=== PATIENT | female | born 1950 | race Caucasian/White ===

== ENCOUNTER 2018-04-22 05:08 | Inpatient (IN) ==
[2018-04-22] MEDS ORDERED: Dexamethasone Inj 20 MG/5 ML Vial IV.PUSH ONE (05:32)
[2018-04-22] MEDS ORDERED: Chlorhexidine 4% Topical 120 APPLIC/120 ML Bottle TOPICAL SCH (05:45)
[2018-04-22] MEDS ORDERED: Chlorhexidine Gluconate 2% 1 Pack (2 Cloths) TOPICAL ONE (05:46)
[2018-04-22] MEDS ORDERED: Metoprolol Tartrate 25 MG Tablet PO ONE (05:46)
[2018-04-22] MEDS ORDERED: Vancomycin Inj 1,000 MG in Sodium Chlor 0.9% Inj 250 ML IV.SIG SCH (06:00)
[2018-04-22] MEDS ORDERED: Sodium Chlor 0.9% Inj 500 ML IV.SIG SCH (06:00)
[2018-04-22] MEDS ORDERED: ceFAZolin 2 GM Premix Inj 2 GM/50 ML PIGGYBACK IV.SIG SCH (06:00)
[2018-04-22] MEDS ORDERED: HYDROmorphone PF Inj 1 MG/ML Ampul IV.PUSH PRN (06:51)
[2018-04-22] MEDS ORDERED: Post-op Orders (for Pharmacy) OTHER STA (06:51)
[2018-04-22] MEDS ORDERED: Zolpidem Tartrate 5 MG Tablet PO PRN (06:51)
[2018-04-22] MEDS ORDERED: Bupivacaine Liposomal PF 1.3% Inj 20 ML Vial ONE (07:36)
[2018-04-22] MEDS ORDERED: Lidocaine PF 1% Inj 5 ML Syringe OTHER ONE (08:05)
[2018-04-22] MEDS ORDERED: Sodium Chlor 0.9% Inj 73.07 ML, Ropivacaine 0.5% PF Inj 24.63 ML, Ketorolac Inj 30 MG, ... P-ARTICULR SCH ×5 (08:30)
[2018-04-22] MEDS ORDERED: TRANEXAMIC ACID IV.SIG SCH (08:30)
[2018-04-22] MEDS ORDERED: SODIUM CHLOR 0.9% IV.SIG SCH (08:30)
[2018-04-22] MEDS ORDERED: Sodium Chlor 0.9% Inj 100 ML, Tranexamic Acid Inj 3,000 MG P-ARTICULR SCH ×2 (08:30)
[2018-04-22] MEDS ORDERED: *Meperidine Inj 25 MG/ML Vial PERIprocedural Use ONLY ONE (10:31)
[2018-04-22] MEDS ORDERED: fentaNYL Citrate Inj 100 MCG/2 ML Ampul ONE (10:42)
--- NOTE | 2018-04-22 11:05 | MP ---
cc: Dell Benson MD DATE OF OPERATION: 04/22/2018 DATE: 04/22/2015 PREOPERATIVE DIAGNOSIS: Right knee osteoarthritis. POSTOPERATIVE DIAGNOSIS: Right knee osteoarthritis. PROCEDURE PERFORMED: Right total knee arthroplasty. SURGEON: Dell Benson MD ICT SUPPORT ENGINEER: NAUN Pina. ANESTHESIA: General with femoral nerve adductor canal block. ESTIMATED BLOOD LOSS: 100 mL TOURNIQUET TIME: 33 minutes at 250 mmHg. COMPLICATIONS: None. IMPLANTS USED: DePuy Attune size 5 posterior stabilized femoral component, size 4 rotating platform tibial baseplate, size 7 mm polyethylene tibial insert, size 35 patella. JUSTIFICATIONS: This patient is a 67-year-old female with history of severe osteoarthritis of the right knee joint. She has severe disabling pain with standing, walking, ambulation, weightbearing activities and severe pain at rest. She has failed greater than 3 months of nonoperative conservative treatment to include medication therapy, injections, ambulatory assistive aides, home exercise program, activity modification, weight loss attempts. X-ray of the right knee revealed severe osteoarthritis with [id number] joint space narrowing, subchondral sclerosis, subchondral cyst, osteophyte formation with varus deformity and subluxation. The patient was counseled on risks, benefits, and alternatives to a total knee arthroplasty. The risks were discussed, which include, but are not limited to anesthesia, bleeding, infection, damage to nerves and blood vessels, pain, stiffness, fracture, failure of hardware, blood clots, pulmonary embolism and even . The patient's pain is very severe. He favored the benefits over the risks and agreed to proceed with surgery. PROCEDURE IN DETAIL: Written consent was obtained. The patient was identified by name, taken to the operating room and placed supine on the table. General anesthesia was administered, as well as 2 grams IV Ancef and 1 gram IV vancomycin. A well-padded tourniquet was placed on the right thigh. The right lower extremity prepped and draped using isopropyl alcohol, Hibiclens solution and ChloraPrep solution. After a timeout was performed, Esmarch bandage was used to exsanguinate the right lower extremity; tourniquet inflated to 250 mmHg. A longitudinal incision was made over the anterior aspect of the right knee. A medial parapatellar arthrotomy was performed. The patella everted. The patellar resection guide was used to resect 9 mm of the patella. The size 35 mm guide was placed. Three drills were placed and the 35 mm trial fit well. Attention was turned to the femur where an intramedullary guide was placed and distal femoral guide was set to remove 10 mm of distal femur, 5 degrees off the anatomic valgus axis line and the oscillating saw used to perform distal femoral cut. Attention was turned to the tibia. An extramedullary tibial guide was set to remove 6 mm off the lowest portion of the medial tibial plateau. A guide pin was placed and tibial cut was performed. A 5 mm spacer block showed full extension. Attention was turned back to the femur. AP sizing block measured a size 5. The anterior reference 3-degree external rotation guide was used and a size [address] The anterior, posterior chamfer cuts were performed. A size 5 PCL box was pinned in place and the PCL was approximated with an oscillating saw. The medial and lateral meniscus remnants were removed as well as bone and soft tissue debris from the posterior portion of the knee. A size 4 tibial baseplate was pinned in place and the tibia was drilled and punched. Trial components were evaluated and final components cemented in place. With the tourniquet and current components, the leg could achieve full extension to 0 degrees and flexion to 140. No evidence of tibial liftoff. Varus valgus balance are appropriate and symmetric and the patella was noted to track centrally. With the tourniquet deflated, Bovie cautery was used for hemostasis. The knee was thoroughly irrigated with sterile saline, pulse lavage and antibiotic impregnated solution. The arthrotomy incision was closed with #1-Vicryl suture, subcutaneous layer with 2-0 Vicryl suture and the skin closed with Dermabond. Sterile dressing was applied. He tolerated the procedure well with no intraoperative complications noted. Samir Abernathy, Physician Maintenance And Custodian Supervisor-Certified was present for the entire procedure to include patient positioning and the procedure itself. The medical necessity of the physician pediatric medical assistant was indicated in this case due to the complexity of the procedure. He assisted with appropriate manipulation of the leg and also retraction muscles, tendon, bone and neurovascular structures. He assisted in preparation of bone and also implantation of the prosthetic replacement. MD ROE Lieberman/brenton , 10:29 AM , 10:39 AM
[2018-04-22] MEDS ORDERED: *morphine SULFATE 4 MG/ML PERIprocedure ONLY ONE ×2 (11:13→11:29)
--- NOTE | 2018-04-22 11:42 | XR ---
EXAM DATE: 04/22/2018 6:49 AM EDT AGE/SEX: 68 years / Female INDICATIONS: Post op right knee. CLINICAL DATA: This is the patient's initial encounter. Patient reports that signs and symptoms have been present for 1 day and indicates a pain score of Nonresponsive. MEDICAL/SURGICAL HISTORY: None. None. COMPARISON: No prior exams available for comparison. FINDINGS: A total knee arthroplasty is identified. The tibial and femoral components appear well seated. Subcut aneous air is present surrounding the knee. Bone density is normal. No fractures are seen. CONCLUSION: Right total knee arthroplasty. Electronically signed by: Barrett Torres MD 04/22/2018 11:41 AM EDT
[2018-04-22] MEDS: ceFAZolin 2 GM Premix Inj 2 GM/50 ML PIGGYBACK IV.SIG SCH ×2 (13:08→18:09)
[2018-04-22] MEDS: Gabapentin 300 MG Capsule PO SCH ×3 (13:32→18:09)
[2018-04-22] MEDS: Multivitamin/Minerals Therapeutic Tablet PO SCH ×2 (13:33→21:47)
[2018-04-22] MEDS: Pantoprazole Sodium 20 MG DR Tablet PO SCH (15:15)
[2018-04-22] MEDS: Senna/Docusate Sodium 8.6/50 MG Tablet PO SCH ×2 (15:15→21:47)
--- NOTE | 2018-04-22 15:20 | P.HPIM ---
History of Present Illness Service: [facility] Primary Care Physician: Garett Huston MD Chief Complaint: R knee pain History of Present Illness: This is a 68 y/o F with PMHx GERD, OA, and AR admitted for surgical management of Osteoarthritis of the R knee. Patient is s/p right total knee arthroplasty performed on 04/[address] Benson. We have been consulted for medical management. Patient reports that she is doing well postop, reports that pain is well controlled with meds. Patient has no current concerns, denies chest pain, shortness of breath, recent illness, fever, and chills. - Diagnosis (1) Osteoarthritis (2) GERD (gastroesophageal reflux disease) (3) Neuropathy (4) Allergic rhinitis Inpatient Certification: I certify that the inpatient services were ordered in accordance with Medicare regulations governing the order. This includes certification that hospital inpatient services are reasonable and necessary and in the case of services not specified as inpatient-only under 42 CFR 419.22(n), that they are appropriately provided as inpatient services in accordance to with the 2-midnight benchmark under 43 CFR 412.3(e) Estimated Total Length of Stay (Days): 2 Plans for Post Hospital Care: Home Review of Systems All other systems reviewed negative except as stated in HPI PMFSH - History History Provided By: Patient - Medical History Medical History: Medical History (Last Reviewed 04/22/18 @ 15:23 by Vielka Earl MD) Arthritis Cataracts, bilateral GERD (gastroesophageal reflux disease) Joint pain Neck pain Peripheral neuropathy Sciatica Skin cancer Urinary incontinence Wears glasses Wears partial dentures - Surgical History Surgical History: Surgical History (Last Reviewed 04/22/18 @ 15:23 by Vielka Earl MD) History of History of arthroplasty of left knee History of cholecystectomy History of foot surgery History of oophorectomy History of tonsillectomy - Family History Family History: Family History (Last Updated 04/22/18 @ 15:23 by Vielka Earl MD) Other Family history normal - Social History I have reviewed the patient's Social History: Yes - Tobacco History Second Hand Smoke Exposure: No Smoking Status: Never smoker - Alcohol History How Often Do You Have a Drink Containing Alcohol: Never - Substance Use History Substance History: No History of Abuse - Travel History Recent Travel in the [place] Within the Last 8 Weeks: No Recent Travel Out of the Country Within the Last 8 Weeks: No - Immunization History Tetanus Immunization: Unsure Hx Influenza Vaccine This Season: No Medications and Allergies Active Medications: Active Medications Hydrocodone Bitart/Acetaminophen ([place] 7.5/325) 1 tab PO Q4H PRN PRN Reason: PAIN LESS THAN 5 ON SCALE Hydrocodone Bitart/Acetaminophen ([place] 7.5/325) 2 tab PO Q6H PRN PRN Reason: PAIN SCALE 5 TO 10 Al Hydroxide/Mg Hydroxide (Milk Of Magnesia Liq) 30 ml PO BID PRN PRN Reason: Mild Constipation Aspirin (Aspirin Chew) 81 mg PO BID [facility] Last Admin: 04/22/18 11:41 Dose: 81 mg Chlorhexidine Gluconate (Hibiclens 4% Topical) 1 applicatio TOPICAL ONCE [facility] Stop: 04/26/18 05:44 Diphenhydramine HCl (Benadryl) 25 mg PO Q6H PRN PRN Reason: ITCHING Gabapentin (Neurontin) 300 mg PO TID [facility] Last Admin: 04/22/18 15:15 Dose: Not Given Hydromorphone HCl (Dilaudid Pf Inj) 1 mg IV.PUSH Q3H PRN PRN Reason: BREAKTHROUGH PAIN Cefazolin Sodium/Dextrose (Ancef 2 Gm Premix Inj) 2 gm in 50 mls @ 100 mls/hr 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 [facility] Stop: 04/26/18 05:59 Last Admin: 04/22/18 07:10 Dose: 100 mls/hr Vancomycin HCl 1,000 mg/ (Sodium Chloride) 250 mls @ 250 mls/hr 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 [facility] Stop: 04/25/18 05:33 Last Admin: 04/22/18 07:33 Dose: 250 mls/hr Lactated Ringer's (Lr 1000 Ml Inj) 1,000 mls @ 30 mls/hr IV.SIG .Q24H [facility] Stop: 04/23/18 05:59 Last Admin: 04/22/18 06:40 Dose: 30 mls/hr Sodium Chloride (Ns Inj) 500 mls @ 30 mls/hr IV.SIG .Q10H [facility] Last Admin: 04/22/18 07:21 Dose: Not Given Cefazolin Sodium/Dextrose (Ancef 2 Gm Premix Inj) 2 gm in 50 mls @ 100 mls/hr IV.SIG Q6H [facility] Stop: 04/23/18 01:29 Last Infusion: 04/22/18 13:38 Dose: Infused Lactated Ringer's (Lr 1000 Ml Inj) 1,000 mls @ 80 mls/hr IV.CONT .[id number] [facility] Last Infusion: 04/22/18 13:34 Dose: 80 mls/hr Lactulose (Lactulose Liq) 30 ml PO DAILY PRN PRN Reason: SEVERE CONSITIPATION Melatonin (Melatonin) 10 mg PO HS [facility] Miscellaneous Information (Mis Nursing Information) 0 each OTHER UNSCH PRN PRN Reason: SEE LABEL COMMENTS Stop: 04/23/18 10:30 Multivitamins/Minerals (Theragran-M) 1 tab PO BID [facility] Stop: 06/21/18 08:59 Last Admin: 04/22/18 13:33 Dose: Not Given Ondansetron HCl (Zofran Inj) 4 mg IV.PUSH Q6H PRN PRN Reason: NAUSEA OR VOMITING Pantoprazole Sodium (Protonix) 20 mg PO DAILY [facility] Last Admin: 04/22/18 15:15 Dose: Not Given Povidone Iodine (Betadine 7.5% Scrub) 1 applicatio TOPICAL ONCE [facility] Stop: 04/26/18 05:59 Senna/Docusate Sodium (Ashly-Colace) 1 tab PO BID [facility] Last Admin: 04/22/18 15:15 Dose: Not Given Sennosides (Senokot) 17.2 mg PO BID PRN PRN Reason: Moderate Constipation Sodium Chloride (Ns Flush) 2 ml IV.FLUSH BID [facility] Last Admin: 04/22/18 13:32 Dose: Not Given Sodium Chloride (Ns Flush) 2 ml IV.FLUSH UNSCH PRN PRN Reason: FLUSH AFTER USING IV ACCESS Zolpidem Tartrate (Ambien) 5 mg PO HS PRN PRN Reason: INSOMNIA Allergies Allergy/AdvReac Type Severity Reaction Status Date / Time No Known Allergies Allergy Verified 04/22/18 07:11 Home Medications Medication Instructions Recorded Confirmed Type calcium carbonate-vitamin D3 1 tab PO BID 04/10/18 04/22/18 History [Calcium 600 + D(3)] cetirizine [Zyrtec] 10 mg PO DAILY 04/10/18 04/22/18 History cholecalciferol (vitamin D3) 1,000 unit PO BID 04/10/18 04/22/18 History [Vitamin D3] gabapentin 300 mg PO TID 04/10/18 04/22/18 History melatonin 10 mg PO HS 04/10/18 04/22/18 History meloxicam 15 mg PO DAILY 04/10/18 04/22/18 History [id number]-kpr-VE-lycopen-lutein 1 tab PO DAILY 04/10/18 04/22/18 History [Centrum Silver] omeprazole 20 mg PO DAILY 04/10/18 04/22/18 History turmeric root extract 500 mg PO BID 04/10/18 04/22/18 History Exam Vital signs: Vital Signs 04/22/18 07:22 04/22/18 07:26 04/22/18 10:30 Temperature 98.6 F 97.2 F L Pulse Rate 87 73 105 H Respiratory Rate 20 22 Blood Pressure 131/69 153/75 H Pulse Oximetry 95 98 97 04/22/18 10:45 04/22/18 11:00 04/22/18 11:15 Temperature Pulse Rate 88 90 87 Respiratory Rate 16 16 14 Blood Pressure 163/60 H 145/68 H 158/73 H Pulse Oximetry 95 95 97 04/22/18 11:30 04/22/18 12:00 04/22/18 13:00 Temperature 97.4 F L Pulse Rate 92 H 88 87 Respiratory Rate 24 14 Blood Pressure 135/68 121/67 Pulse Oximetry 96 96 97 Intake & Output 04/21/18 04/22/18 04/22/18 18:59 06:59 18:59 Intake Total 1592 / 1592 Output Total 50 / 50 Balance 1542 / 1542 Weight 93.3 kg 93.3 kg Intake: IV 242 / 242 LR 1000 mL Inj 1,000 ML @ 80 192 / 192 mls/hr IV.CONT .[id number] [facility] Rx# :[id number] Ancef 2 GM Premix Inj 2 gm In 50 / 50 50 ml @ 100 mls/hr IV.SIG Q6H [facility] Rx#:[id number] Oral 150 / 150 Anesthesia Amount 1200 / 1200 Output: Urine 0 / 0 Estimated Blood Loss 50 / 50 Other: Date of Last Bowel Movement 04/21/18 Weight On Admission 93.3 kg Narrative: GENERAL: Well-nourished female, in NAD, lying comfortably in bed SKIN: Warm and dry. HEENT: Normocephalic. No scleral icterus. No injection or drainage. PERRLA, MOM. NECK: Supple, trachea midline. No JVD or lymphadenopathy. CARDIOVASCULAR: Regular rate and rhythm without murmurs, gallops, or rubs. RESPIRATORY: CTA x2 GASTROINTESTINAL: Abdomen soft, non-tender, nondistended. MUSCULOSKELETAL: No cyanosis, or edema. R knee dressing in place, C/D/I BACK: Nontender without obvious deformity. No CVA tenderness. NEURO: AAOx3, well-nourished male, in NAD, resting calmly in bed no focal deficits Results - Imaging Impressions Knee X-Ray 04/22/18 06:49 CONCLUSION: Right total knee arthroplasty. Caprini VTE Risk Assessment Caprini VTE Risk Assessment: Moderate/High Risk (score >= 2) Caprini Risk Assessment Model: Point Value = 1 Point Value = 2 Point Value = 3 Point Value = 5 Age 41-60 Minor surgery BMI > 25 kg/m2 Swollen legs Varicose veins or History of unexplained or recurrent spontaneous Oral contraceptives or hormone replacement Sepsis (< 1 month) Serious lung disease, including pneumonia (< 1 month) Abnormal pulmonary function Acute myocardial infarction Congestive heart failure (< 1 month) History of inflammatory bowel disease Medical patient at bed rest Age 61-74 Arthroscopic surgery Major open surgery (> 45 min) Laparoscopic surgery (> 45 min) Malignancy Confined to bed (> 72 hours) Immobilizing plaster cast Central venous access Age >= 75 History of VTE Family history of VTE Factor V Leiden Prothrombin [id number] Lupus anticoagulant Anticardiolipin antibodies Elevated serum homocysteine Heparin-induced thrombocytopenia Other congenital or acquired thrombophilia Stroke (< 1 month) Elective arthroplasty Hip, pelvis, or leg fracture Acute spinal cord injury (< 1 month) Prophylaxis Regimen: Total Risk Factor Score Risk Level Prophylaxis Regimen 0-1 Low Early ambulation 2 Moderate Order ONE of the following: *Sequential Compression Device (SCD) *Heparin 5000 units SQ BID 3-4 Higher Order ONE of the following medications: *Heparin 5000 units SQ TID *Enoxaparin/Lovenox 40 mg SQ daily (WT < 150 kg, CrCl > 30 mL/min) *Enoxaparin/Lovenox 30 mg SQ daily (WT < 150 kg, CrCl > 10-29 mL/min) *Enoxaparin/Lovenox 30 mg SQ BID (WT < 150 kg, CrCl > 30 mL/min) AND/OR *Sequential Compression Device (SCD) 5 or more Highest Order ONE of the following medications: *Heparin 5000 units SQ TID (Preferred with Epidurals) *Enoxaparin/Lovenox 40 mg SQ daily (WT < 150 kg, CrCl > 30 mL/min) *Enoxaparin/Lovenox 30 mg SQ daily (WT < 150 kg, CrCl > 10-29 mL/min) *Enoxaparin/Lovenox 30 mg SQ BID (WT < 150 kg, CrCl > 30 mL/min) AND *Sequential Compression Device (SCD) Assessment and Plan - Assessment (1) Osteoarthritis Code(s): M19.90 - Unspecified osteoarthritis, unspecified site Status: Chronic (2) GERD (gastroesophageal reflux disease) Code(s): K21.9 - Gastro-esophageal reflux disease without esophagitis Status: Chronic (3) Neuropathy Code(s): G62.9 - Polyneuropathy, unspecified Status: Chronic (4) Allergic rhinitis Code(s): J30.9 - Allergic rhinitis, unspecified Status: Chronic - Plan This is a 68 y/o F with PMHx GERD, OA, and AR admitted for surgical management of Osteoarthritis of of the R knee, patient is s/p Right Total Knee Arthroplasty performed by Dr. Benson on 04/22, POD#0, we have been consulted for medical management, HD#1 1. Right Knee Osteoarthritis s/p Right Total Knee Arthroplasty Postop care, managed by Ortho, appreciate assistance with care Dilaudid, [place], and Zofran PRN On Cefazolin and Vanc per Ortho PT to evaluate and assist with discharge planning 2. GERD Cont. home PPI 3. AR Cont. home Zytec 4. Osteoarthritis Holding home Meloxicam due to increased bleeding risk postop 5. Neuropathy Continue home Gabapentin 6. DVT PPX: ASA per Ortho 7. Dispo: Await PT recommendations for discharge planning, and Ortho postoperative recommendations Code Status: full Discussed Condition With: patient, RN H&P: Quality - VTE Deep Vein Thrombosis/Pulmonary Embolism Present on Admission: No
--- NOTE | 2018-04-22 19:25 | P.PN ---
Subjective Interval history: NOt seen Physical Exam Vital signs: Vital Signs 04/22/18 07:22 04/22/18 07:26 04/22/18 10:30 Temperature 98.6 F 97.2 F L Pulse Rate 87 73 105 H Respiratory Rate 20 22 Blood Pressure 131/69 153/75 H Pulse Oximetry 95 98 97 04/22/18 10:45 04/22/18 11:00 04/22/18 11:15 Temperature Pulse Rate 88 90 87 Respiratory Rate 16 16 14 Blood Pressure 163/60 H 145/68 H 158/73 H Pulse Oximetry 95 95 97 04/22/18 11:30 04/22/18 12:00 04/22/18 13:00 Temperature 97.4 F L Pulse Rate 92 H 88 87 Respiratory Rate 24 14 Blood Pressure 135/68 121/67 Pulse Oximetry 96 96 97 04/22/18 16:00 Temperature 97.5 F L Pulse Rate 72 Respiratory Rate 17 Blood Pressure 116/58 L Pulse Oximetry 72 L Intake & Output 04/22/18 04/22/18 04/23/18 06:59 18:59 06:59 Intake Total 2121 / 2121 Output Total 50 / 50 Balance 2071 / 2071 Weight 93.3 kg 93.3 kg Intake: IV 292 / 292 LR 1000 mL Inj 1,000 ML @ 80 192 / 192 mls/hr IV.CONT .[id number] [facility] Rx# :[id number] Ancef 2 GM Premix Inj 2 gm In 100 / 100 50 ml @ 100 mls/hr IV.SIG Q6H [facility] Rx#:[id number] Oral 630 / 630 Anesthesia Amount 1200 / 1200 Output: Urine 0 / 0 Estimated Blood Loss 50 / 50 Other: # Voids 2 Date of Last Bowel Movement 04/21/18 # Bowel Movements 0 Weight On Admission 93.3 kg Narrative: GENERAL: Well-nourished female, in NAD, lying comfortably in bed SKIN: Warm and dry. HEENT: Normocephalic. No scleral icterus. No injection or drainage. PERRLA, MOM. NECK: Supple, trachea midline. No JVD or lymphadenopathy. CARDIOVASCULAR: Regular rate and rhythm without murmurs, gallops, or rubs. RESPIRATORY: CTA x2 GASTROINTESTINAL: Abdomen soft, non-tender, nondistended. MUSCULOSKELETAL: No cyanosis, or edema. R knee dressing in place, C/D/I BACK: Nontender without obvious deformity. No CVA tenderness. NEURO: AAOx3, well-nourished male, in NAD, resting calmly in bed no focal deficits Results - Labs Laboratory Results - last 24 hr 04/22/18 06:56 Blood Type O Positive Blood Type Recheck Required Antibody Screen Negative - Imaging Impressions Knee X-Ray 04/22/18 06:49 CONCLUSION: Right total knee arthroplasty. - Procedures Right TKA Assessment and Plan - Assessment (1) Osteoarthritis Code(s): M19.90 - Unspecified osteoarthritis, unspecified site Status: Chronic (2) GERD (gastroesophageal reflux disease) Code(s): K21.9 - Gastro-esophageal reflux disease without esophagitis Status: Chronic (3) Neuropathy Code(s): G62.9 - Polyneuropathy, unspecified Status: Chronic (4) Allergic rhinitis Code(s): J30.9 - Allergic rhinitis, unspecified Status: Chronic - Plan This is a 68 y/o F with PMHx GERD, OA, and Allergic rhinitis admitted for surgical management of Osteoarthritis of of the R knee, patient is s/p Right Total Knee Arthroplasty performed by Dr. Benson on 04/22, we have been consulted for medical management 1. Right Knee Osteoarthritis s/p Total Knee Arthroplasty Postop care, managed by Ortho, appreciate assistance with care Dilaudid, [place], and Zofran PRN On Cefazolin and Vanc per Ortho PT to evaluate and assist with discharge planning 2. GERD Cont. home PPI 3. Allergic rhinitis Cont. home Zytec 4. Osteoarthritis Holding home Meloxicam due to increased bleeding risk postop 5. Neuropathy Continue home Gabapentin 6. DVT PPX: ASA per Ortho 7. Dispo: Await PT recommendations for discharge planning, and Ortho postoperative recommendations
[2018-04-22] MEDS: Calcium/Vitamin D 250/125 MG Tablet PO SCH (21:47)
[2018-04-22] MEDS: Melatonin 5 MG Tablet PO SCH (21:48)
[2018-04-23] MEDS: ceFAZolin 2 GM Premix Inj 2 GM/50 ML PIGGYBACK IV.SIG SCH (02:34)
[2018-04-23 05:01] LABS: Hematocrit 36.3 % (35.0-46.0); Hemoglobin 12.1 gm/dL (11.6-15.3)
[2018-04-23 05:18] LABS: Calcium 8.6 mg/dL (8.5-10.1); Carbon Dioxide 27.9 meq/L (21.0-32.0)
[2018-04-23 06:46] LABS: Potassium 4.5 meq/L (3.5-5.1)
--- NOTE | 2018-04-23 08:10 | P.PNOP ---
Subjective Interval history: pain controlled. Physical Exam Vital signs: Vital Signs 04/22/18 10:30 04/22/18 10:45 04/22/18 11:00 Temperature 97.2 F L Pulse Rate 105 H 88 90 Respiratory Rate 22 16 16 Blood Pressure 153/75 H 163/60 H 145/68 H Pulse Oximetry 97 95 95 04/22/18 11:15 04/22/18 11:30 04/22/18 12:00 Temperature Pulse Rate 87 92 H 88 Respiratory Rate 14 24 14 Blood Pressure 158/73 H 135/68 121/67 Pulse Oximetry 97 96 96 04/22/18 13:00 04/22/18 16:00 04/22/18 20:00 Temperature 97.4 F L 97.5 F L 97.6 F Pulse Rate 87 72 92 H Respiratory Rate 17 18 Blood Pressure 116/58 L 123/61 Pulse Oximetry 97 72 L 97 04/23/18 00:00 04/23/18 04:00 04/23/18 08:00 Temperature 97.3 F L 97.6 F 97.5 F L Pulse Rate 73 77 80 Respiratory Rate 18 18 16 Blood Pressure 111/52 L 123/60 119/59 L Pulse Oximetry 98 98 93 L Intake & Output 04/22/18 04/23/18 04/23/18 18:59 06:59 18:59 Intake Total 2 / 2122 400 / 400 50 / 50 Output Total 50 / 50 Balance 2071 / 2071 400 / 400 50 / 50 Weight 93.3 kg Intake: IV 292 / 292 50 / 50 LR 1000 mL Inj 1,000 ML @ 80 192 / 192 0 / 0 mls/hr IV.CONT .[id number] [facility] Rx# :[id number] Ancef 2 GM Premix Inj 2 gm In 100 / 100 50 / 50 50 ml @ 100 mls/hr IV.SIG Q6H [facility] Rx#:[id number] Oral 630 / 630 400 / 400 Anesthesia Amount 1200 / 1200 Output: Urine 0 / 0 Estimated Blood Loss 50 / 50 Other: # Voids 2 4 Date of Last Bowel Movement 04/21/18 04/21/18 # Bowel Movements 0 Narrative: in room, ambulating with walker nad dressing c/d/i neg homans nvi Results - Labs CBC & Chem 7: 04/23/18 04:51 10/16/18 04:31 Laboratory Results - last 24 hr 04/23/18 04/23/18 04:31 04:51 Hgb 12.1 Hct 36.3 Sodium 141 Potassium 4.5 Chloride 107 Carbon Dioxide 27.9 Anion Gap 9 BUN 13 Creatinine 1.02 H Estimated GFR 54 L Random Glucose 129 H Calcium 8.6 - Imaging Impressions Knee X-Ray 04/22/18 06:49 CONCLUSION: Right total knee arthroplasty. Assessment and Plan - Ortho Post Op Day # 1 - Assessment and Plan s/p R TKA wbat ok to maintain dressing unless saturated asa 81 d/c planning to snf - [facility] f/up dr. [place] 2 weeks
[2018-04-23] MEDS: Calcium/Vitamin D 250/125 MG Tablet PO SCH ×2 (09:37→21:43)
[2018-04-23] MEDS: Gabapentin 300 MG Capsule PO SCH ×3 (09:38→18:34)
[2018-04-23] MEDS: Senna/Docusate Sodium 8.6/50 MG Tablet PO SCH ×2 (09:38→21:43)
[2018-04-23] MEDS: Pantoprazole Sodium 20 MG DR Tablet PO SCH (09:38)
[2018-04-23] MEDS: Multivitamin/Minerals Therapeutic Tablet PO SCH ×2 (09:38→21:43)
--- NOTE | 2018-04-23 14:26 | P.PN ---
Subjective Interval history: Follow-up, status post right total knee. Patient seen and examined, sitting up in chair. Resting comfortably, pain is stable. Has not had bowel movement yet. No fever, no chest pain, no shortness of breath. Tolerating diet well, no nausea, no vomiting. at bsd. Pt. wants to go to [facility] Physical Exam Vital signs: Vital Signs 04/22/18 16:00 04/22/18 20:00 04/23/18 00:00 Temperature 97.5 F L 97.6 F 97.3 F L Pulse Rate 72 92 H 73 Respiratory Rate 17 18 18 Blood Pressure 116/58 L 123/61 111/52 L Pulse Oximetry 72 L 97 98 04/23/18 04:00 04/23/18 08:00 04/23/18 12:00 Temperature 97.6 F 97.5 F L 98.0 F Pulse Rate 77 80 80 Respiratory Rate 18 16 16 Blood Pressure 123/60 119/59 L 132/60 Pulse Oximetry 98 93 L 93 L Intake & Output 04/22/18 04/23/18 04/23/18 18:59 06:59 18:59 Intake Total 2122 / 2122 400 / 400 50 / 50 Output Total 50 / 50 Balance 2071 / 2 400 / 400 50 / 50 Weight 93.3 kg Intake: IV 292 / 292 50 / 50 LR 1000 mL Inj 1,000 ML @ 80 192 / 192 0 / 0 mls/hr IV.CONT .[id number] TORSTEN Rx# :[id number] Ancef 2 GM Premix Inj 2 gm In 100 / 100 50 / 50 50 ml @ 100 mls/hr IV.SIG Q6H TORSTEN Rx#:[id number] Oral 630 / 630 400 / 400 Anesthesia Amount 1200 / 1200 Output: Urine 0 / 0 Estimated Blood Loss 50 / 50 Other: # Voids 2 4 Date of Last Bowel Movement 04/21/18 04/21/18 # Bowel Movements 0 Narrative: GENERAL: Well-nourished, well-developed patient in no apparent distress. SKIN: Warm and dry. HEAD: Atraumatic. Normocephalic. EYES: Pupils equal and round. No scleral icterus. No injection or drainage. ENT: No nasal bleeding or discharge. Mucous membranes pink and moist. NECK: Trachea midline. No JVD. CARDIOVASCULAR: Regular rate and rhythm. RESPIRATORY: No accessory muscle use. Clear to auscultation. Breath sounds equal bilaterally. GASTROINTESTINAL: Abdomen soft, non-tender, nondistended. Hepatic and splenic margins not palpable. MUSCULOSKELETAL: Right knee dressing, clean dry and intact. Minimal edema as expected postop. Right pedal pulse 2+, intact sensation. No other joint abnormality. NEUROLOGICAL: Awake, alert oriented x3. Speech clear. No focal deficits. PSYCHIATRIC: Appropriate mood and affect; insight and judgment normal. Results - Labs CBC & Chem 7: 04/23/18 04:51 04/23/18 04:31 Laboratory Results - last 24 hr 04/23/18 04/23/18 04:31 04:51 Hgb 12.1 Hct 36.3 Sodium 141 Potassium 4.5 Chloride 107 Carbon Dioxide 27.9 Anion Gap 9 BUN 13 Creatinine 1.02 H Estimated GFR 54 L Random Glucose 129 H Calcium 8.6 Assessment and Plan - Assessment (1) Osteoarthritis Code(s): M19.90 - Unspecified osteoarthritis, unspecified site Status: Chronic (2) GERD (gastroesophageal reflux disease) Code(s): K21.9 - Gastro-esophageal reflux disease without esophagitis Status: Chronic (3) Neuropathy Code(s): G62.9 - Polyneuropathy, unspecified Status: Chronic (4) Allergic rhinitis Code(s): J30.9 - Allergic rhinitis, unspecified Status: Chronic - Plan This is a 68 y/o F with PMHx GERD, OA, and AR admitted for surgical management of Osteoarthritis of of the R knee, patient is s/p Right Total Knee Arthroplasty performed by Dr. Benson on 04/22 Right Knee Osteoarthritis s/p Right Total Knee Arthroplasty -Postop care, managed by Ortho, appreciate assistance with care -Dilaudid, Buchanan, and Zofran PRN -On Cefazolin and Vanc per Ortho -PT to evaluate and assist with discharge planning, wants to go to SNF -HH stable. GERD -Cont. home PPI AR -Cont. home Zytec Osteoarthritis -Holding home Meloxicam due to increased bleeding risk postop Neuropathy -Continue home Gabapentin 6. DVT PPX: ASA per Ortho Case management following, patient wants to go to SNF. Code Status: Full code Discussed Condition With: RN, pt Discharge Planning: SNF in 2 days
[2018-04-23] MEDS: Melatonin 5 MG Tablet PO SCH (21:43)
[2018-04-24 05:25] LABS: Hematocrit 34.9 % (35.0-46.0); Hemoglobin 11.8 gm/dL (11.6-15.3)
[2018-04-24 06:00] LABS: Calcium 8.6 mg/dL (8.5-10.1); Carbon Dioxide 29.3 meq/L (21.0-32.0); Potassium 4.2 meq/L (3.5-5.1)
[2018-04-24] MEDS: Calcium/Vitamin D 250/125 MG Tablet PO SCH ×2 (10:00→21:06)
[2018-04-24] MEDS: Senna/Docusate Sodium 8.6/50 MG Tablet PO SCH ×2 (10:02→21:05)
[2018-04-24] MEDS: Gabapentin 300 MG Capsule PO SCH ×3 (10:02→17:10)
[2018-04-24] MEDS: Pantoprazole Sodium 20 MG DR Tablet PO SCH (10:02)
[2018-04-24] MEDS: Multivitamin/Minerals Therapeutic Tablet PO SCH ×2 (10:03→21:06)
--- NOTE | 2018-04-24 10:51 | P.PNOP ---
Subjective Interval history: doing well. pain in the R calf. Physical Exam Vital signs: Vital Signs 04/23/18 12:00 04/23/18 16:00 04/23/18 20:00 Temperature 98.0 F 98.2 F 98.6 F Pulse Rate 80 91 H 92 H Respiratory Rate 16 16 18 Blood Pressure 132/60 105/54 L 100/56 L Pulse Oximetry 93 L 97 95 04/24/18 00:00 04/24/18 04:00 04/24/18 08:00 Temperature 97.8 F 97.8 F 98.1 F Pulse Rate 95 H 80 101 H Respiratory Rate 18 18 Blood Pressure 104/59 L 124/60 125/58 L Pulse Oximetry 96 94 L 96 Intake & Output 04/23/18 04/24/18 04/24/18 18:59 06:59 18:59 Intake Total 3050 / 3050 Balance 3050 / 3050 Weight 93.7 kg Intake: IV 50 / 50 LR 1000 mL Inj 1,000 ML @ 80 0 / 0 mls/hr IV.CONT .[id number] [facility]ORST[facility] Rx# :[id number] Ancef 2 GM Premix Inj 2 gm In 50 / 50 50 ml @ 100 mls/hr IV.SIG Q6H TORSTEN Rx#:[id number] Oral 3000 / 3000 Other: # Voids 6 5 Date of Last Bowel Movement 04/21/18 # Bowel Movements 1 1 Narrative: in bed, using cpm, nad dressing c/d/i painful calf nvi Results - Labs CBC & Chem 7: 04/24/18 05:00 04/24/18 05:00 Laboratory Results - last 24 hr 04/24/18 04/24/18 05:00 05:00 Hgb 11.8 Hct 34.9 L Sodium 143 Potassium 4.2 Chloride 106 Carbon Dioxide 29.3 Anion Gap 8 BUN 15 Creatinine 0.84 Estimated GFR 68 L Random Glucose 94 Calcium 8.6 Assessment and Plan - Ortho Post Op Day # 2 - Assessment and Plan s/p R TKA wbat ok to maintain dressing unless saturated asa 81 doppler US RLE d/c planning to sn[facility] f/up dr. solano 2 weeks
--- NOTE | 2018-04-24 12:19 | US ---
EXAM DATE: 04/24/2018 12:00 AM EDT AGE/SEX: 68 years / Female INDICATIONS: Right leg pain. S/p right knee replacement. 1 wk CLINICAL DATA: This is the patient's initial encounter. Patient reports that signs and symptoms have been present for 1 day and indicates a pain score of 6/10. MEDICAL/SURGICAL HISTORY: Gastroesophageal reflux disease. Arthritis. Cataracts. Joint pain. Pe ripheral neuropathy. Sciatica. Urinary incontinence. Partial dentures. section. Cholecyste ctomy. Tonsillectomy. Arthroplasty. Foot surgery. Right oophorectomy. Bilateral knee replacements. COMPARISON: No prior exams available for comparison. TECHNIQUE: Venous ultrasound of both lower extremities was performed from the inguinal ligament to t he proximal calf. Real-time, color Doppler and spectral tracing, compression and augmentation techni ques were used. FINDINGS: Normal compression of the deep venous system from the inguinal region to the proximal calf . No echogenic clot is seen. Normal response of the venous system to augmentation and respiration. CONCLUSION: 1. The study is negative for lower extremity deep venous thrombosis. Electronically signed by: Barrett Torres MD 04/24/2018 12:17 PM EDT
[2018-04-24] MEDS: Melatonin 5 MG Tablet PO SCH (21:05)
--- NOTE | 2018-04-25 08:14 | P.PNOP ---
Subjective Interval history: doing well. Physical Exam Vital signs: Vital Signs 04/24/18 12:00 04/24/18 16:00 04/24/18 20:00 Temperature 97.9 F 98 F 98.1 F Pulse Rate 96 H 94 H 92 H Respiratory Rate 18 18 17 Blood Pressure 110/56 L 129/58 L 115/61 Pulse Oximetry 96 95 99 04/25/18 00:00 Temperature 97.7 F Pulse Rate 88 Respiratory Rate 16 Blood Pressure 121/59 L Pulse Oximetry 96 Intake & Output 04/24/18 04/25/18 04/25/18 18:59 06:59 18:59 Output Total 400 / 400 Balance -400 / -400 Weight 93.4 kg Output: Urine 400 / 400 Other: # Voids 3 Date of Last Bowel Movement 04/21/18 04/24/18 Narrative: in bed, using cpm, nad dressing c/d/i neg homer nvi Results - Labs CBC & Chem 7: 04/24/18 05:00 04/24/18 05:00 - Imaging Impressions Venous Doppler Study 04/24/18 00:00 CONCLUSION: 1. The study is negative for lower extremity deep venous thrombosis. Assessment and Plan - Ortho Post Op Day # 3 - Assessment and Plan s/p R TKA wbat ok to maintain dressing unless saturated asa 81 doppler US RLE - neg d/c planning to snf - [facility] f/up dr. solano 2 weeks
[2018-04-25] MEDS: Gabapentin 300 MG Capsule PO SCH (09:14)
[2018-04-25] MEDS: Senna/Docusate Sodium 8.6/50 MG Tablet PO SCH (09:14)
[2018-04-25] MEDS: Calcium/Vitamin D 250/125 MG Tablet PO SCH (09:14)
[2018-04-25] MEDS: Multivitamin/Minerals Therapeutic Tablet PO SCH (09:14)
[2018-04-25] MEDS: Pantoprazole Sodium 20 MG DR Tablet PO SCH (09:14)
[2018-04-25 12:39] VITALS: BP 137/65; PULSE 102; RESP 20; TEMP 97.9; O2SAT 97
--- NOTE | 2018-04-26 07:28 | MD ---
cc: Dell Benson MD DATE OF DISCHARGE: 04/25/2018 ADMITTING DIAGNOSIS: Severe degenerative osteoarthritis, right knee. DISCHARGE DIAGNOSIS: Severe degenerative osteoarthritis, right knee. HISTORY OF PRESENT ILLNESS: Mrs. Fagan is a 68-year-old female who has been a longstanding patient of Dr[facility] Dell [facility]. Currently, she has been treated for severe and progressive right knee pain. The patient's pain has been present for many years and is currently inhibiting her abilities to ambulate safely in her activities of daily living. She does have a history of a well-functioning left total knee arthroplasty. The patient states her knee pain is severe and aggravated by weightbearing activities. She has no alleviating factors; although in the past, she has tried medications, bracing, physical therapy, home exercise program, and multiple corticosteroid injections without long lasting relief of symptoms. She does have x-ray evidence of severe degenerative osteoarthritis of the right knee. While in the office, the patient was counseled on her diagnosis and treatment options. Risks, benefits, indications, alternatives discussed. The patient did elect to proceed with surgical intervention to include a right total knee arthroplasty. PROCEDURE: Date of surgery 04/22/2018, right total knee arthroplasty. POSTOP: After surgery, the patient was admitted to [facility] where she received appropriate medical management, pain control, DVT prophylaxis, as well as physical therapy. DISCHARGE: Once being discharged from the hospital, the patient has been cleared to go to a longterm facility. She is in stable condition. She may weight bear as tolerated. She has been instructed on wound care management. The patient has been provided prescriptions for pain control and DVT prophylaxis medications. She has also been provided a followup appointment in approximately 2 weeks from her date of surgery. The patient has asked appropriate questions which have been answered. The patient is cleared for discharge. Dictated by NAUN Warren Dell Benson MD JWM/jama , 08:16 AM , 08:21 AM
== END 2018-04-25 14:01 ==
LOC: HSDI 05:08 → N06 14:01
PROVIDERS: ADMIT Orthopaedic Surgery Sports Medicine; ATTEND Orthopaedic Surgery Sports Medicine